=== PATIENT | female | born 1940 | race Caucasian/White ===

== ENCOUNTER 2017-05-03 12:19 | Day surgery (SDC) | payer OTHER, SELFPAY ==
[~2017-05-03] VITALS: Ht 167.6 cm; Wt 58.1 kg
[~2017-05-03 12:19] MED LIST: ALBU90OI6; AMLO5 PO; CLOP75; FAMO20; LISHYD1012; LISHYD2025 PO; PRAV20 PO
== END 2017-05-03 15:12 | disposition home or self-care (01) ==
LOC: ORSCSDS 12:19
PROVIDERS: Internal Medicine Gastroenterology
PROC: 0DB98ZX Excision of Duodenum, Via Natural or Artificial Opening Endoscopic, Diagnostic (ICD-10-PCS; principal; 2017-05-03 13:45)
PROC: 0DBN8ZX Excision of Sigmoid Colon, Via Natural or Artificial Opening Endoscopic, Diagnostic (ICD-10-PCS; principal; 2017-05-03 13:45)
PROC: 0DBP8ZX Excision of Rectum, Via Natural or Artificial Opening Endoscopic, Diagnostic (ICD-10-PCS; principal; 2017-05-03 13:45)
DX: K21.9 Gastro-esophageal reflux disease without esophagitis (principal); K31.7 Polyp of stomach and duodenum; Z86.010 Personal history of colon polyps; K57.30 Diverticulosis of large intestine without perforation or abscess without bleeding; D12.5 Benign neoplasm of sigmoid colon; K62.1 Rectal polyp; I10 Essential (primary) hypertension; Z86.73 Personal history of transient ischemic attack (TIA), and cerebral infarction without residual deficits; J44.9 Chronic obstructive pulmonary disease, unspecified; E78.2 Mixed hyperlipidemia; F17.210 Nicotine dependence, cigarettes, uncomplicated; Z79.899 Other long term (current) drug therapy
CPT/HCPCS: 88305; J7120

== ENCOUNTER 2018-04-22 22:01 | Inpatient (IN) | payer OTHER ==
[~2018-04-22] VITALS: Ht 165.1 cm; Wt 49.0 kg
[2018-04-22] MEDS ORDERED: BUPR75 PO (22:17)
[2018-04-23] MEDS ORDERED: MUCINEX PO (01:41)
[2018-04-23 02:28] LABS: BASOPHILS ABSOLUTE AUTO 0.03 K/mm3 (0.00-0.23); BASOPHILS PERCENT AUTO 0 % (0-2); EOSINOPHILS ABSOLUTE AUTO 0.04 K/mm3 (0.00-0.68); EOSINOPHILS PERCENT AUTO 0 % (0-6); Hematocrit 33.5 % (33.0-51.0); Hemoglobin 10.7 g/dL (11.5-16.0); IMMATURE GRAN ABSOLUTE AUTO 0.02 K/mm3 (0.00-0.10); IMMATURE GRAN PERCENT AUTO 0 % (0-1); LYMPHOCYTES ABSOLUTE AUTO 1.73 K/mm3 (0.84-5.20); LYMPHOCYTES PERCENT AUTO 19 % (21-46); MONOCYTES ABSOLUTE AUTO 0.77 K/mm3 (0.16-1.47); MONOCYTES PERCENT AUTO 8 % (4-13); Mean Corpuscular HGB 29.7 pg (26.0-34.0); Mean Corpuscular HGB Conc 31.9 g/dL (31.5-36.5); Mean Corpuscular Volume 93 fL (80-100); Mean Platelet Volume 9.6 fL (9.1-12.4); NEUTROPHILS ABSOLUTE AUTO 6.63 K/mm3 (1.96-9.15); NEUTROPHILS PERCENT AUTO 72 % (41-73); Platelet Count 180 K/mm3 (150-400); RDW Coefficient Variation 13.1 % (11.7-14.2); RDW Standard Deviation 44.8 fL (35.1-46.3); White Blood Cell Count 9.22 K/mm3 (4.00-11.30)
[2018-04-23 02:44] LABS: Anion Gap 9 mmol/L (6-16); Blood Urea Nitrogen 16 mg/dL (8-24); Bun/Creatinine Ratio 18.1 (12.0-20.0); CO2, Blood 26 mmol/L (21-32); Calcium, Blood 8.5 mg/dL (8.5-10.1); Chloride, Blood 109 mmol/L (98-108); Creatinine, Blood 0.89 mg/dL (0.40-1.00); Glomerular Filtration Rate >60 (60-); Glucose, Blood 105 mg/dL (70-99); Potassium, Blood 4.3 mmol/L (3.5-5.5); Sodium, Blood 144 mmol/L (136-145)
--- NOTE | 2018-04-23 07:39 | NUR ---
SUMMARY PT ADMITTED TO ORTHO UNIT S/P FALL AND L HIP FX. PT ALERT,COOPERATIVE. MEDICATED X1 WITH SUBLIMAZE FOR PAIN. WAITING TO BE SEEN BY ORTHO FOR FURTHER ORDERS AND POSSIBLE SCHEDULING OF REPAIR.
--- NOTE | 2018-04-23 08:05 | NUR ---
CONSULT: DR VOGEL NOTIFIED OF CONSULT FOR THIS PATIENT.
[2018-04-23 09:38] LABS: Source, Urine Catheter
[2018-04-23 09:57] LABS: Appearance, Urine Clear (Clear); Bilirubin, Urine Neg (Neg); Blood, Urine Neg (Neg); Color, Urine Yellow (P-Yellow); Glucose Qualitative, Urine Neg (Neg); Ketones, Urine Neg (Neg); Leukocyte Esterase, Urine Neg (Neg); Nitrite, Urine Neg (Neg); Protein, Urine Neg (Neg); Urobilinogen, Urine NORM (Normal)
[2018-04-23 14:47] LABS: International Normalized Ratio 0.96; Prothrombin Time Results 9.9 Sec (9.7-11.5)
--- NOTE | 2018-04-23 16:06 | NUR ---
SHIFT SUMMARY PT A&OX4, VSS, S/P L HIP FX FROM FALL. PAIN MANAGED W/ 25 MCGS FENT. MONICA PO, DENIES N&V. BEDREST. NIEVES PATENT & DRAINING YELLOW URINE, STAT LOCK IN PLACE, OFF FLOOR. 18G RUE. PLAN FOR SURGERY TOMORROW, NPO AT MIDNIGHT. WILL CTM & TX PER EMAR UNTIL REPORT GIVEN TO ONCOMING NOC RN.
--- NOTE | 2018-04-24 08:18 | NUR ---
SHIFT SUMMARY PT A&O X4 T/O SHIFT. S/P L HIP FX. PPPX4. PAIN MANGED PER EMAR. NAUSEA X1; TX PER EMAR. PT REPORTED SOME IMPROVEMENT. PT C/O ABD PAIN POINTING TO RUQ AND EPIGASTIC AREA. APPROX. 0200 PHYSICIAN ESPINOSA NOTIFIED PT REPORT OF ABD PAIN, RUQ, MID BACK PAIN, AND "HEART BURN". ORDERS ENTERED PER EMAR. DURING ASSESSMENT PT DENIED SOB AND PT STATED "YES" SHE HAS HAD THIS PAIN BEFORE. PT REPORTED IMPROVEMENT AFTER MALOX AND SLEPT. APPROX. 0600 DR. ESPINOSA NOTIFIED PT HR QUICKLY CHANGING FROM 80'S TO 120'S AND THEN BACK TO ONE-TEENS; PT DENIED SOB, AND CP; BP STABLE, MEDICATIONS REVIED, RECENT ECG REVIEWED. ORDER FOR TELEMETRY RECIEVED. TELEMETRY REPORTED AFIB WITH HR BETWEEN 130 AND 150; DR. ESPINOSA NOTIFIED AT 0625 OF TELEMETRY FINDINGS AND ORDER FOR ECG AND METOPROLOL 5MG IV OT RECIEVED; RN TO NOTIFY EFM PROVIDER OF PT STATUS 25 MIN AFTER METOPROLOL DOSE. PT DENIED HX OF AFIB, PT DENIED CP; AT THIS TIME SHE STS SHE HAD "FLUTTERING" EARLIER IN SHIFT AND WITH FURTHER QUESTIONING PT REPORTED HAVING SIMILAR SYPTOMS REPORTED EARLIER IN THE SHIFT IN THE PAST AND HER " HAS CALLED THE AMBULANCE AND THEY MADE IT STOP." PT CONTINUED TO DENY CP/P AND SOB THROUGH THE REST OF SHIFT. NPO POST MIDNIGHT. IV GTT PER EMAR. CATHETER IN PLACE; DRAINING WELL. CALL LIGHT IN REACH; PT DEMONSTRATES USE. REPORT GIVEN TO DAY SHIFT RN.
--- NOTE | 2018-04-24 17:15 | NUR ---
SHIFT SUMMARY PT A&OX4, VSS, S/P L HIP FX. PAIN MANAGED PER EMAR. MONICA PO, DENIES N&V. TELE SINUS RHYTHM @ 65, PT CONVERTED FROM AFIB AT 1238. BEDREST. NIEVES PATENT & DRAINING YELLOW URINE, STAT LOCK IN PLACE, OFF FLOOR. 18 IV RUE, IVF @ 100 MLS/HR. PLAN FOR SURGERY TOMORROW, NPO AT MIDNIGHT. WILL CTM & TX PER EMAR UNTIL REPORT GIVEN TO ONCOMING NOC RN.
[2018-04-25 05:46] LABS: BASOPHILS ABSOLUTE AUTO 0.03 K/mm3 (0.00-0.23); BASOPHILS PERCENT AUTO 0 % (0-2); EOSINOPHILS ABSOLUTE AUTO 0.19 K/mm3 (0.00-0.68); EOSINOPHILS PERCENT AUTO 3 % (0-6); Hematocrit 29.6 % (33.0-51.0); Hemoglobin 9.4 g/dL (11.5-16.0); IMMATURE GRAN ABSOLUTE AUTO 0.02 K/mm3 (0.00-0.10); IMMATURE GRAN PERCENT AUTO 0 % (0-1); LYMPHOCYTES ABSOLUTE AUTO 1.66 K/mm3 (0.84-5.20); LYMPHOCYTES PERCENT AUTO 23 % (21-46); MONOCYTES ABSOLUTE AUTO 0.79 K/mm3 (0.16-1.47); MONOCYTES PERCENT AUTO 11 % (4-13); Mean Corpuscular HGB 29.4 pg (26.0-34.0); Mean Corpuscular HGB Conc 31.8 g/dL (31.5-36.5); Mean Corpuscular Volume 93 fL (80-100); Mean Platelet Volume 9.8 fL (9.1-12.4); NEUTROPHILS ABSOLUTE AUTO 4.52 K/mm3 (1.96-9.15); NEUTROPHILS PERCENT AUTO 63 % (41-73); Platelet Count 147 K/mm3 (150-400); RDW Coefficient Variation 12.8 % (11.7-14.2); RDW Standard Deviation 43.4 fL (35.1-46.3); White Blood Cell Count 7.21 K/mm3 (4.00-11.30)
[2018-04-25 06:12] LABS: Anion Gap 5 mmol/L (6-16); Blood Urea Nitrogen 13 mg/dL (8-24); Bun/Creatinine Ratio 15.5 (12.0-20.0); CO2, Blood 26 mmol/L (21-32); Calcium, Blood 8.7 mg/dL (8.5-10.1); Chloride, Blood 109 mmol/L (98-108); Creatinine, Blood 0.84 mg/dL (0.40-1.00); Glomerular Filtration Rate >60 (60-); Glucose, Blood 92 mg/dL (70-99); Potassium, Blood 4.3 mmol/L (3.5-5.5); Sodium, Blood 140 mmol/L (136-145)
--- NOTE | 2018-04-25 07:55 | NUR ---
SHIFT SUMMARY PT A&O X4 T/O SHIFT. S/P L HIP FX; NWB LLE; PPPX4; EXT PWD. PAIN MANGED PER EMAR. PAIN MANGEMENT DISCUSSED WITH PT; PT ENCOURAGED TO NOTIFY RN OF PAIN PRIOR TO REACHING LEVEL OF NOTABLE DISCOMFORT. PT REPOSITIONED PRN; PT MAKES SMALL ADJUSTMENTS TO BODY POSITION INDEPENDENTLY. SIDE RAILS X3 FOR SAFETY. NPO POST MINIGHT; ORAL CARE SWABS IN REACH. SCD'S TO BLE'S. EZEQUIEL ALFARO; TELEMETRY IN PLACE; SB PER RAND BUTTING MACHINE OPERATOR. CALL LIGHT IN REACH. REPORT GIVEN TO DAY SHIFT RN.
--- NOTE | 2018-04-25 12:10 | NUR ---
History, Chart, Medications and Allergies reviewed before start of procedure.Lungs clear T/O to Auscultation. Patient confirms NPO status and agrees with scheduled surgery.
--- NOTE | 2018-04-25 17:45 | NUR ---
SHIFT SUMMARY PT A&OX4, VSS, TELE SR @ 81. S/P L HIP NAILING, AQUACEL X2 CDI, DENIES N&T, TEDS, SCDS AND POLAR BARRERA ON. PAIN MANAGED W/ 5 MG NORCO. MONICA PO, DENIES N&V. AMB FWW & GB WITH MOD ASSIST TO BSC & CHAIR. IN CHAIR FOR DINNER. PHYSICAL THERAPY EVAL'D. GI CONSULT NOT CALLED D/T NO ONE MISSILEMAN TODAY; HOSPITALIST AWARE. NIEVES PATENT & DRAINING YELLOW URINE, STAT LOCK ON, OFF FLOOR. WILL CTM & TX PRN UNTIL REPORT GIVEN TO ONCOMING NOC RN.
[2018-04-26 04:36] LABS: BASOPHILS ABSOLUTE AUTO 0.04 K/mm3 (0.00-0.23); BASOPHILS PERCENT AUTO 1 % (0-2); EOSINOPHILS ABSOLUTE AUTO 0.15 K/mm3 (0.00-0.68); EOSINOPHILS PERCENT AUTO 3 % (0-6); Hematocrit 27.1 % (33.0-51.0); Hemoglobin 8.7 g/dL (11.5-16.0); IMMATURE GRAN ABSOLUTE AUTO 0.01 K/mm3 (0.00-0.10); IMMATURE GRAN PERCENT AUTO 0 % (0-1); LYMPHOCYTES PERCENT AUTO 23 % (21-46); MONOCYTES ABSOLUTE AUTO 0.68 K/mm3 (0.16-1.47); MONOCYTES PERCENT AUTO 11 % (4-13); Mean Corpuscular HGB 29.5 pg (26.0-34.0); Mean Corpuscular HGB Conc 32.1 g/dL (31.5-36.5); Mean Corpuscular Volume 92 fL (80-100); Mean Platelet Volume 10.3 fL (9.1-12.4); NEUTROPHILS ABSOLUTE AUTO 3.78 K/mm3 (1.96-9.15); NEUTROPHILS PERCENT AUTO 62 % (41-73); Platelet Count 154 K/mm3 (150-400); RDW Coefficient Variation 12.6 % (11.7-14.2); RDW Standard Deviation 42.5 fL (35.1-46.3); Red Blood Cell Count 2.95 M/mm3 (3.80-5.20); White Blood Cell Count 6.06 K/mm3 (4.00-11.30)
[2018-04-26 04:55] LABS: Anion Gap 6 mmol/L (6-16); Blood Urea Nitrogen 17 mg/dL (8-24); Bun/Creatinine Ratio 19.5 (12.0-20.0); CO2, Blood 27 mmol/L (21-32); Calcium, Blood 8.6 mg/dL (8.5-10.1); Chloride, Blood 106 mmol/L (98-108); Creatinine, Blood 0.87 mg/dL (0.40-1.00); Glomerular Filtration Rate >60 (60-); Glucose, Blood 92 mg/dL (70-99); Potassium, Blood 4.2 mmol/L (3.5-5.5); Sodium, Blood 139 mmol/L (136-145)
--- NOTE | 2018-04-26 06:41 | NUR ---
LYING IN HIGH FOWLERS WITH EYES OPENWHILE WATCHING TV AND DRINKING HER MORNING COFFEE. NURSING REITERATED NEED TO CALL WITH NEEDS, VOICES UNDERSTANDING, DENIES FURTHER NEEDS AT THIS TIME. SAFETY MEASURES IN PLACE. WILL CONTINUE TO MONITOR.
--- NOTE | 2018-04-26 17:11 | NUR ---
SHIFT SUMMARY PAIN HAS BEEN MANAGED WITH PO PAIN MEDICATION THIS SHIFT. PT HAS BEEN RESISTANT TO GETTING OOB WITH MEALS. SHE IS A 1-2 ASSIST WHEN OOB. PT DECLINES ASSISTANCE REPOSITIONING IN BED. PT WAS EDUCATED ABOUT THE RISK OF A PRESSURE INJURY WITH DECREASED ACTIVITY. PLAN IS TO GO TO SNF WHEN PT IS STABLE. VSS. WILL CONTINUE TO MONITOR UNTIL REPORT TO ONCOMING RN.
[2018-04-27 05:19] LABS: BASOPHILS ABSOLUTE AUTO 0.04 K/mm3 (0.00-0.23); BASOPHILS PERCENT AUTO 1 % (0-2); EOSINOPHILS PERCENT AUTO 2 % (0-6); Hematocrit 25.9 % (33.0-51.0); Hemoglobin 8.4 g/dL (11.5-16.0); IMMATURE GRAN ABSOLUTE AUTO 0.01 K/mm3 (0.00-0.10); IMMATURE GRAN PERCENT AUTO 0 % (0-1); LYMPHOCYTES PERCENT AUTO 19 % (21-46); MONOCYTES PERCENT AUTO 11 % (4-13); Mean Corpuscular HGB 29.7 pg (26.0-34.0); Mean Corpuscular HGB Conc 32.4 g/dL (31.5-36.5); Mean Corpuscular Volume 92 fL (80-100); Mean Platelet Volume 10.5 fL (9.1-12.4); NEUTROPHILS ABSOLUTE AUTO 4.17 K/mm3 (1.96-9.15); NEUTROPHILS PERCENT AUTO 67 % (41-73); Platelet Count 159 K/mm3 (150-400); RDW Coefficient Variation 12.7 % (11.7-14.2); Red Blood Cell Count 2.83 M/mm3 (3.80-5.20); White Blood Cell Count 6.22 K/mm3 (4.00-11.30)
[2018-04-27 05:45] LABS: Albumin, Blood 2.8 g/dL (3.4-5.0); Anion Gap 7 mmol/L (6-16); Blood Urea Nitrogen 15 mg/dL (8-24); Bun/Creatinine Ratio 17.9 (12.0-20.0); CO2, Blood 25 mmol/L (21-32); Chloride, Blood 106 mmol/L (98-108); Creatinine, Blood 0.84 mg/dL (0.40-1.00); Glomerular Filtration Rate >60 (60-); Glucose, Blood 103 mg/dL (70-99); Phosphorus, Blood 3.2 mg/dL (2.5-4.9); Sodium, Blood 138 mmol/L (136-145)
--- NOTE | 2018-04-27 06:19 | NUR ---
POD 2 S/P R SIMONE HIP REPAIR. PT VSS T/O NIGHT. DRESSING CDI. MILD SWELLING NOTED AT R HIP. PT MED FOR PAIN X1 W/REP RELIEF. PT DECLINED ADDITIONAL OFFERINGS OF PAIN MED. PT REFUSING MOST ATTEMPTS OF REPOSITIONING. PT IS DOING ROM EXERCISES WHILE IN BED, DOES SHIFT SELF SLIGHTLY. NIEVES CATH D/C THIS AM. PT EDUCATED ON IMPORTANCE OF AMB UP OOB. PT USING CALL LIGHT FOR ASSISTANCE, WILL CONT TO MONITOR UNTIL REP GIVEN TO ONCOMING RN.
--- NOTE | 2018-04-27 11:53 | NUR ---
DR. RODRIGUEZ ROUNDED ON PT AT THIS TIME. DISCUSSED RESTARTING PLAVIX, BOWEL CARE AND ORTHOSTATIC HYPOTENSION WHEN WORKING WITH THERAPY. WILL CONTINUE TO MONITOR.
--- NOTE | 2018-04-27 11:56 | NUR ---
ORTHOSTATIC HYPOTENSION PT BECAME HYPOTENSIVE AT APPROXIMATELY 1050 WHEN WORKING WITH THERAPY. PB WAS 80S/40S. BP IMPROVED ONCE PT WAS BACK TO BED. DR. RODRIGUEZ NOTIFIED.
--- NOTE | 2018-04-27 15:22 | NUR ---
REPOSITIONING PT HAS REPORTED THAT SHE IS ABLE TO SHIFT POSITIONS IN BED. SHE HAS DECLINED ASSISTANCE WITH REPOSITIONING FOR MOST OF THE DAY. SHE ALLOWED STAFF TO TURN HER IN ORDER TO ASSESS SKIN AND PLACE PRESSURE PREVENTION DRESSING TO COCCYX THIS AFTERNOON. SHE IS PAINFUL WITH REPOSITIONING AND DOESNT TOLERATE WELL EVEN WHEN PREMEDICATED. PT WAS EDUCATED THAT SHE IS DEVELOPING A REDDENED AREA ON HER COCCYX THAT COULD WORSEN TO A PRESSURE SORE IF SHE CONTINUES TO BE UNWILLING TO REPOSITIONG; REDDENED AREA BLANCHES. PREVENTION DRESSING PLACED. WILL CONTINUE TO MONITOR AND ENCOURAGE REPOSITIONING.
--- NOTE | 2018-04-27 15:58 | NUR ---
BLADDER SCAN PT ATTEMPTED TO USE THE BEDPAN. SHE WAS UNABLE TO VOID. BLADDER SCAN SHOWED 321ML IN THE BLADDER. PT REPORTED SHE WOULD LIKE TO TRY AGAIN LATER. PT WAS ABLE TO VOID 200ML EARLIER TODAY. WILL CONTINUE TO MONITOR.
--- NOTE | 2018-04-27 16:07 | NUR ---
Initial Visit: Palliative care consult for AD/POLST and advance care planning. Pt resting in bed and is A&O x4. She reports 8/10 pain in her left hip and states the pain is due to being on the bed mo. Offered assistance and she denies need. She reports not being ready to get off bed mo. Pt reports pain medication decreases her pain to a tolerable level. Pt reports that she has no religous belief and she lives at home with her . Pt reports adequate support with her and her sisters are also willing to help when needed. Discussion was made about AD and POLST and Pt states she is willing to consider one or both. Offered to help with forms and she denies need. She states she will complete at a later time. Pt reports no other concerns at this time. Spoke with Pt's nurse Esther and she report no concerns at this time. She reports the Pt will experience intermittent pain when working with physical therapy and has started pre medicating her before therapy. Plan is to obtain POLST or Advance Directive once completed.
--- NOTE | 2018-04-27 18:37 | NUR ---
SHIFT SUMMARY PAIN HAS BEEN MANAGED WITH PO PAIN MEDICATION. SHE STILL COMPLAINS OF PAIN WITH ALL ACTIVITY. SHE IS RELUCTANT TO REPOSITION AND DECLINES OFTEN. SHE IS ABLE TO REPOSITION HERSELF SLIGHTLY. PT WAS A 2 ASSIST WHEN OOB WITH THERAPY. HER BP DECREASED WHEN OOB WITH AM THERAPY, AND PT HAD TO GET BACK TO BED. PT HAS BEEN ENCOURAGED TO DRINK FLUIDS. VSS. WILL CONTINUE TO MONITOR UNTIL REPORT TO ONCOMING RN.
--- NOTE | 2018-04-28 10:10 | NUR ---
PT UP TO BSC WITH ASSIST FROM FEMALE FINANCIAL AID. PT REPORTS WILL HAVE SUPPOSITORY TO ASSIST WITH BM, GIVEN WITH FEMALE FINANCIAL AID IN ROOM.
--- NOTE | 2018-04-28 11:34 | NUR ---
PT REPORTED TO HAVE BM PER FEMALE RESIDENT ATHLETIC TRAINER. PT NOW WORKING WITH THERAPY.
--- NOTE | 2018-04-28 13:27 | NUR ---
DR CLEARY HERE TO SEE PT. SEE ORDERS.
--- NOTE | 2018-04-28 14:39 | NUR ---
DISCHARGE: PT DISCHARGED TO U.V. IV OUT WNL. PT SENT WITH BELONGINGS. PAPERWORK AND SCRIPT SENT WITH PT. DRESSINGS SENT WITH PT. REPORT BEEN GIVEN TO NURSE HOLLAND. PT EATING AND DRINKING, VOIDING. HAD BM TODAY. PAIN TOLERABLE ON PO PAIN MEDICATION.
== END 2018-04-28 14:40 | DRG 481 ==
LOC: ER 22:01 → SURS 04-23 00:17
PROVIDERS: Emergency Medicine; Internal Medicine Endocrinology, Diabetes & Metabolism; Orthopaedic Surgery; ADMIT Hospitalist
PROC: 0QS706Z Reposition Left Upper Femur with Intramedullary Internal Fixation Device, Open Approach (ICD-10-PCS; principal; 2018-04-25 13:00)
DX: S72.142A Displaced intertrochanteric fracture of left femur, initial encounter for closed fracture (principal); I69.354 Hemiplegia and hemiparesis following cerebral infarction affecting left non-dominant side; D62 Acute posthemorrhagic anemia; F17.210 Nicotine dependence, cigarettes, uncomplicated; J44.9 Chronic obstructive pulmonary disease, unspecified; F32.9 Major depressive disorder, single episode, unspecified; E78.00 Pure hypercholesterolemia, unspecified; I10 Essential (primary) hypertension; E78.5 Hyperlipidemia, unspecified
CPT/HCPCS: 36415; 71045; 72170; 73501; 80048; 80069; 81003; 85025; 85610; 93005; 93010; 93306; 94640; 94760; 96374; 97110; 97116; 97162; 97166; 97530; 99285-25; C1713; C1769; G8978; G8979; G8987; G8988; J0690; J1170; J1885; J2250; J2405; J3010; J7030; J7120

== ENCOUNTER → 2019-06-10 | Outpatient (CLI) | payer OTHER ==
[~2019-06-10] MED LIST changes: +BUPR75 PO; +MUCINEX PO
[2019-06-10 17:04] LABS: BASOPHILS ABSOLUTE AUTO 0.02 K/mm3 (0.00-0.23); BASOPHILS PERCENT AUTO 1 % (0-2); EOSINOPHILS ABSOLUTE AUTO 0.06 K/mm3 (0.00-0.68); EOSINOPHILS PERCENT AUTO 1 % (0-6); Hematocrit 36.2 % (33.0-51.0); Hemoglobin 11.8 g/dL (11.5-16.0); IMMATURE GRAN ABSOLUTE AUTO 0.01 K/mm3 (0.00-0.10); IMMATURE GRAN PERCENT AUTO 0 % (0-1); LYMPHOCYTES PERCENT AUTO 39 % (21-46); MONOCYTES ABSOLUTE AUTO 0.49 K/mm3 (0.16-1.47); MONOCYTES PERCENT AUTO 11 % (4-13); Mean Corpuscular HGB 29.4 pg (26.0-34.0); Mean Corpuscular HGB Conc 32.6 g/dL (31.5-36.5); Mean Corpuscular Volume 90 fL (80-100); Mean Platelet Volume 9.8 fL (9.1-12.4); NEUTROPHILS ABSOLUTE AUTO 2.11 K/mm3 (1.96-9.15); NEUTROPHILS PERCENT AUTO 48 % (41-73); Platelet Count 215 K/mm3 (150-400); RDW Coefficient Variation 12.9 % (11.7-14.2); RDW Standard Deviation 42.5 fL (35.1-46.3); Red Blood Cell Count 4.02 M/mm3 (3.80-5.20); White Blood Cell Count 4.39 K/mm3 (4.00-11.30)
[2019-06-10 17:16] LABS: Bun/Creatinine Ratio 15.4 (12.0-20.0); Creatinine, Blood 1.3 mg/dL (0.40-1.00); Potassium, Blood 3.8 mmol/L (3.5-5.5)
== END | disposition home or self-care (01) ==
LOC: LAB EV 16:59 → LAB SHORT 16:59
PROVIDERS: Physician Assistant Surgical
DX: R06.09 Other forms of dyspnea (principal)
CPT/HCPCS: 80048; 83880; 85025

== ENCOUNTER 2022-02-17 07:55 | Emergency (ER) | payer OTHER ==
[~2022-02-17] VITALS: Ht 167.6 cm; Wt 54.4 kg
[~2022-02-17 07:55] MED LIST changes: +ELIQUIS5 M2 PO; +Veetids 500500 MG PO
[2022-02-17 08:13] LABS: BASOPHILS ABSOLUTE AUTO 0.09 K/mm3 (0.00-0.23); BASOPHILS PERCENT AUTO 1 % (0-2); EOSINOPHILS PERCENT AUTO 2 % (0-6); Hematocrit 31.9 % (33.0-51.0); Hemoglobin 10.6 g/dL (11.5-16.0); IMMATURE GRAN ABSOLUTE AUTO 0.02 K/mm3 (0.00-0.10); IMMATURE GRAN PERCENT AUTO 0 % (0-1); LYMPHOCYTES ABSOLUTE AUTO 2.54 K/mm3 (0.84-5.20); LYMPHOCYTES PERCENT AUTO 39 % (21-46); MONOCYTES ABSOLUTE AUTO 0.61 K/mm3 (0.16-1.47); MONOCYTES PERCENT AUTO 9 % (4-13); Mean Corpuscular HGB 31.1 pg (26.0-34.0); Mean Corpuscular HGB Conc 33.2 g/dL (31.5-36.5); Mean Corpuscular Volume 94 fL (80-100); Mean Platelet Volume 9.2 fL (9.1-12.4); NEUTROPHILS ABSOLUTE AUTO 3.16 K/mm3 (1.96-9.15); NEUTROPHILS PERCENT AUTO 48 % (41-73); Platelet Count 185 K/mm3 (150-400); RDW Coefficient Variation 12.6 % (11.7-14.2); RDW Standard Deviation 43.7 fL (35.1-46.3); Red Blood Cell Count 3.41 M/mm3 (3.80-5.20); White Blood Cell Count 6.52 K/mm3 (4.00-11.30)
[2022-02-17 08:36] LABS: Albumin, Blood 2.7 g/dL (3.4-5.0); Albumin/Globulin Ratio 1.2 (0.8-1.8); Bilirubin, Total 0.3 mg/dL (0.1-1.0); Bun/Creatinine Ratio 12.2 (12.0-20.0); Calcium, Blood 6.8 mg/dL (8.5-10.1); Creatinine, Blood 0.57 mg/dL (0.40-1.00); Globulin, Blood 2.2 g/dL (2.2-4.0); Magnesium, Blood 1.8 mg/dL (1.6-2.4); Potassium, Blood 3.5 mmol/L (3.5-5.5); Total Protein, Blood 4.9 g/dL (6.4-8.2)
[2022-02-17 12:35] LABS: Source, Urine Straight Cath
[2022-02-17 12:39] LABS: Appearance, Urine Clear (Clear); Bilirubin, Urine Neg (Neg); Blood, Urine Neg (Neg); Color, Urine Yellow (P-Yellow); Glucose Qualitative, Urine Neg (Neg); Ketones, Urine 1+ (Neg); Leukocyte Esterase, Urine Neg (Neg); Nitrite, Urine Neg (Neg); Protein, Urine Neg (Neg); Urobilinogen, Urine NORM (Normal); pH, Urine 6.5 (5.0-8.0)
== END 2022-02-17 13:41 | disposition home or self-care (01) ==
LOC: ER 07:55
PROVIDERS: Student in an Organized Health Care Education/Training Program
DX: I95.9 Hypotension, unspecified (principal); I10 Essential (primary) hypertension; E83.51 Hypocalcemia; E78.5 Hyperlipidemia, unspecified; J44.9 Chronic obstructive pulmonary disease, unspecified; F17.210 Nicotine dependence, cigarettes, uncomplicated; Z88.8 Allergy status to other drugs, medicaments and biological substances; Z79.899 Other long term (current) drug therapy; Z86.73 Personal history of transient ischemic attack (TIA), and cerebral infarction without residual deficits; Z79.01 Long term (current) use of anticoagulants
CPT/HCPCS: 36415; 51798; 70450; 71046; 80053; 81003; 82947; 83735; 84145; 85025; 93005; 93010; 96365; 96375; 99285-25; A9270; J0610; J1790; J1885; J2765; J7030

== ENCOUNTER 2024-08-13 11:42 | Emergency (ER) | payer OTHER ==
[~2024-08-13] VITALS: Ht 167.6 cm; Wt 58.1 kg
[~2024-08-13 11:42] MED LIST changes: +ATOR20 PO; +Acetaminophen325 M1; +LOSARTAN POTAS100 M1 PO; +OMEP20ER PO; +Plavix75 MG PO; +SERT50 PO; +Toprol Xl25 MG PO
[2024-08-13 12:34] LABS: BASOPHILS ABSOLUTE AUTO 0.05 K/mm3 (0.00-0.23); BASOPHILS PERCENT AUTO 1 % (0-2); EOSINOPHILS ABSOLUTE AUTO 0.09 K/mm3 (0.00-0.68); EOSINOPHILS PERCENT AUTO 1 % (0-6); Hematocrit 32.9 % (33.0-51.0); Hemoglobin 10.7 g/dL (11.5-16.0); IMMATURE GRAN ABSOLUTE AUTO 0.01 K/mm3 (0.00-0.10); IMMATURE GRAN PERCENT AUTO 0 % (0-1); LYMPHOCYTES ABSOLUTE AUTO 1.69 K/mm3 (0.84-5.20); LYMPHOCYTES PERCENT AUTO 26 % (21-46); MONOCYTES ABSOLUTE AUTO 0.56 K/mm3 (0.16-1.47); MONOCYTES PERCENT AUTO 9 % (4-13); Mean Corpuscular HGB 30.1 pg (26.0-34.0); Mean Corpuscular HGB Conc 32.5 g/dL (31.5-36.5); Mean Corpuscular Volume 92 fL (80-100); Mean Platelet Volume 9.6 fL (9.1-12.4); NEUTROPHILS ABSOLUTE AUTO 4.17 K/mm3 (1.96-9.15); NEUTROPHILS PERCENT AUTO 63 % (41-73); Platelet Count 239 K/mm3 (150-400); RDW Coefficient Variation 13.1 % (11.7-14.2); RDW Standard Deviation 44.9 fL (35.1-46.3); Red Blood Cell Count 3.56 M/mm3 (3.80-5.20); White Blood Cell Count 6.57 K/mm3 (4.00-11.30)
[2024-08-13] MEDS ORDERED: NS 1,000 ML IV SCH (12:40)
[2024-08-13 12:57] LABS: Albumin, Blood 3.5 g/dL (3.4-5.0); Albumin/Globulin Ratio 1.1 (0.8-1.8); Bilirubin, Total 0.4 mg/dL (0.1-1.0); Bun/Creatinine Ratio 13.7 (12.0-20.0); Calcium, Blood 8.6 mg/dL (8.5-10.1); Creatinine, Blood 0.88 mg/dL (0.40-1.00); Globulin, Blood 3.1 g/dL (2.2-4.0); Magnesium, Blood 2.1 mg/dL (1.6-2.4); Potassium, Blood 3.7 mmol/L (3.5-5.5); Total Protein, Blood 6.6 g/dL (6.4-8.2)
[2024-08-13 16:34] VITALS: BP 110/67
== END 2024-08-13 16:34 | disposition home or self-care (01) ==
LOC: ER 11:42
PROVIDERS: Student in an Organized Health Care Education/Training Program
DX: R55 Syncope and collapse (principal); E86.0 Dehydration; I10 Essential (primary) hypertension; J44.9 Chronic obstructive pulmonary disease, unspecified; I48.91 Unspecified atrial fibrillation; I69.354 Hemiplegia and hemiparesis following cerebral infarction affecting left non-dominant side; E78.5 Hyperlipidemia, unspecified; F17.210 Nicotine dependence, cigarettes, uncomplicated; Z88.8 Allergy status to other drugs, medicaments and biological substances; Z79.01 Long term (current) use of anticoagulants; Z79.899 Other long term (current) drug therapy
CPT/HCPCS: 71046; 80053; 83735; 84484; 85025; 93005; 93010; 99285-25; J7030

== ENCOUNTER 2024-12-10 21:41 | Emergency (ER) | payer OTHER ==
[~2024-12-10] VITALS: Ht 167.6 cm; Wt 55.3 kg
[~2024-12-10 21:41] MED LIST changes: -Acetaminophen325 M1; +Acetaminophen325 M1 PO
[2024-12-10] MEDS ORDERED: Metoprolol Tartrate 1 MG/ML 5 ML VIAL IV PRN (21:55)
[2024-12-10 22:04] LABS: BASOPHILS ABSOLUTE AUTO 0.05 K/mm3 (0.00-0.23); BASOPHILS PERCENT AUTO 1 % (0-2); EOSINOPHILS ABSOLUTE AUTO 0.10 K/mm3 (0.00-0.68); EOSINOPHILS PERCENT AUTO 2 % (0-6); Hematocrit 32.6 % (33.0-51.0); Hemoglobin 10.7 g/dL (11.5-16.0); IMMATURE GRAN ABSOLUTE AUTO 0.01 K/mm3 (0.00-0.10); IMMATURE GRAN PERCENT AUTO 0 % (0-1); LYMPHOCYTES ABSOLUTE AUTO 2.98 K/mm3 (0.84-5.20); LYMPHOCYTES PERCENT AUTO 45 % (21-46); MONOCYTES ABSOLUTE AUTO 0.60 K/mm3 (0.16-1.47); MONOCYTES PERCENT AUTO 9 % (4-13); Mean Corpuscular HGB Conc 32.8 g/dL (31.5-36.5); Mean Corpuscular Volume 93 fL (80-100); NEUTROPHILS ABSOLUTE AUTO 2.94 K/mm3 (1.96-9.15); NEUTROPHILS PERCENT AUTO 44 % (41-73); NRBC ABSOLUTE 0.00 K/mm3 (0.00-0.02); NRBC Auto 0.0 /100 WBC (0.0-0.2); Platelet Count 226 K/mm3 (150-400); RDW Coefficient Variation 14.0 % (11.7-14.2); RDW Standard Deviation 47.5 fL (35.1-46.3)
[2024-12-10 22:15] LABS: Alanine Aminotransfer (ALT/SGP 13.0 U/L (12-78); Albumin, Blood 3.3 g/dL (3.4-5.0); Albumin/Globulin Ratio 1.0 (0.8-1.8); Anion Gap 8.0 mmol/L (3-11); Aspartate Aminotrans (AST/SGOT 23.0 U/L (12-37); Bilirubin, Total 0.4 mg/dL (0.1-1.0); Blood Urea Nitrogen 7.0 mg/dL (8-24); CO2, Blood 24.0 mmol/L (21-32); Calcium, Blood 9.4 mg/dL (8.5-10.1); Chloride, Blood 104.0 mmol/L (98-108); Creatinine, Blood 0.67 mg/dL (0.40-1.00); Globulin, Blood 3.2 g/dL (2.2-4.0); Glucose, Blood 91.0 mg/dL (70-99); Potassium, Blood 3.4 mmol/L (3.5-5.5); Sodium, Blood 133.0 mmol/L (136-145); Total Protein, Blood 6.5 g/dL (6.4-8.2)
[2024-12-10] MEDS ORDERED: METOPROLOL SUCC25 MG PO ×2 (22:22→23:19)
[2024-12-10 23:00] VITALS: BP 148/95
== END 2024-12-10 23:29 | disposition home or self-care (01) ==
LOC: ER 21:41
PROVIDERS: Student in an Organized Health Care Education/Training Program
DX: I48.91 Unspecified atrial fibrillation (principal); I10 Essential (primary) hypertension; E78.5 Hyperlipidemia, unspecified; J44.9 Chronic obstructive pulmonary disease, unspecified; F17.210 Nicotine dependence, cigarettes, uncomplicated; Z88.8 Allergy status to other drugs, medicaments and biological substances; Z79.2 Long term (current) use of antibiotics; Z79.899 Other long term (current) drug therapy
CPT/HCPCS: 80053; 83880; 84484; 85025; 93005; 93010; 96374; 99285-25; A9270

== ENCOUNTER 2024-12-27 01:03 | Observation (INO) | payer OTHER ==
[~2024-12-27] VITALS: Ht 167.6 cm; Wt 48.0 kg
[~2024-12-27 01:03] MED LIST changes: +METOPROLOL SUCC25 MG PO
[2024-12-27] MEDS ORDERED: Ketorolac Tromethamine 15mg Vial IV ONE (01:20)
[2024-12-27] MEDS ORDERED: Lidocaine 4% 1 Patch TOP ONE ×2 (01:20→02:40)
[2024-12-27 01:38] LABS: BASOPHILS ABSOLUTE AUTO 0.04 K/mm3 (0.00-0.23); BASOPHILS PERCENT AUTO 1 % (0-2); EOSINOPHILS ABSOLUTE AUTO 0.08 K/mm3 (0.00-0.68); EOSINOPHILS PERCENT AUTO 1 % (0-6); Hematocrit 32.5 % (33.0-51.0); Hemoglobin 10.7 g/dL (11.5-16.0); IMMATURE GRAN ABSOLUTE AUTO 0.02 K/mm3 (0.00-0.10); IMMATURE GRAN PERCENT AUTO 0 % (0-1); LYMPHOCYTES ABSOLUTE AUTO 1.84 K/mm3 (0.84-5.20); LYMPHOCYTES PERCENT AUTO 33 % (21-46); MONOCYTES ABSOLUTE AUTO 0.60 K/mm3 (0.16-1.47); MONOCYTES PERCENT AUTO 11 % (4-13); Mean Corpuscular HGB Conc 32.9 g/dL (31.5-36.5); Mean Corpuscular Volume 93 fL (80-100); NEUTROPHILS ABSOLUTE AUTO 2.99 K/mm3 (1.96-9.15); NEUTROPHILS PERCENT AUTO 54 % (41-73); NRBC ABSOLUTE 0.00 K/mm3 (0.00-0.02); NRBC Auto 0.0 /100 WBC (0.0-0.2); Platelet Count 230 K/mm3 (150-400); RDW Coefficient Variation 14.3 % (11.7-14.2); RDW Standard Deviation 49.1 fL (35.1-46.3)
[2024-12-27 01:55] LABS: Alanine Aminotransfer (ALT/SGP 10.0 U/L (12-78); Albumin, Blood 3.1 g/dL (3.4-5.0); Albumin/Globulin Ratio 1.1 (0.8-1.8); Anion Gap 10.0 mmol/L (3-11); Aspartate Aminotrans (AST/SGOT 41.0 U/L (12-37); Bilirubin, Total 0.4 mg/dL (0.1-1.0); Blood Urea Nitrogen 7.0 mg/dL (8-24); CO2, Blood 20.0 mmol/L (21-32); Calcium, Blood 9.0 mg/dL (8.5-10.1); Chloride, Blood 108.0 mmol/L (98-108); Creatinine, Blood 0.62 mg/dL (0.40-1.00); Globulin, Blood 2.8 g/dL (2.2-4.0); Glucose, Blood 78.0 mg/dL (70-99); Potassium, Blood 4.1 mmol/L (3.5-5.5); Sodium, Blood 134.0 mmol/L (136-145); Total Protein, Blood 5.9 g/dL (6.4-8.2)
[2024-12-27 10:58] VITALS: BP 138/85
--- NOTE | 2024-12-27 11:09 | NUR ---
PATIENT ARRIVED IN ROOM 328 @1058. PATIENT ORIENTATED TO CALL SYSTEM AND BELONGINGS PUT INTO PERSONAL BELONGINGS BAGS. IV FLUSHED c 10ML NS, PATENT. FAMILY IN ROOM AT THIS TIME, AWAITING TELE. VITALS ARE WNL.
[2024-12-27] MEDS ORDERED: Calcium Carbon500 MG PO (11:29)
--- NOTE | 2024-12-27 14:31 | NUR ---
TELE STRIP REVIEWED THIS NURSE REVIEWED THE TELE STRIP FOR THIS PATIENT. THIS NURSE AGREES WITH THE TREE DEADENER'S INTERPRETATION, HOWEVER THIS NURSE NOTED SOME ST DEPRESSION. THIS NURSE WILL DISCUSS WITH YOLANDE Almanzar
[2024-12-27 15:43] VITALS: BP 178/77
--- NOTE | 2024-12-27 18:47 | NUR ---
SHIFT SUMMARY: PATIENT IS A+O X4 AND COOPERATIVE WITH CARE. PATIENT REMAINS UNDER OBS AT THIS TIME. LUNGS CLEAR AND DIMINISHED, S1 S2 HEARD ON ASCULATION, ROOM AIR CURRENTLY, C-PAP ORDER IN PLACE. PATIENT NOTED TO HAVE ECCHYMOTIC SKIN WITH REDDENED AREAS ON COXY AND HEALS. MEPILEX PLACED FOR PREVENTION. PATIENT REMAINS SBA TO BATHROOM. CARDIOLOGY CONSULTED IN ER. VICE PRESIDENT QUALITY ASSURANCE NOTIFIED THIS NURSE OF ST DEPRESSION NOTED IN EKG. ONCOMING NURSE NOTIFIED OF FINDINGS. PATIENT PULLED OUT IV AND WAS EDUCATED ON IMPORTANCE OF KEEPING ONE IN. PATIENT ACKNOWLEDGED IMPORTANCE.
[2024-12-27 19:31] VITALS: BP 114/56
[2024-12-28] VITALS (8 sets, daily range): BP systolic 99–146; BP diastolic 70–86
[2024-12-28] MEDS ORDERED: Metoprolol Tartrate 1 MG/ML 5 ML VIAL IV ONE (01:00)
[2024-12-28 01:30] LABS: Anion Gap 9.0 mmol/L (3-11); Blood Urea Nitrogen 7.0 mg/dL (8-24); CO2, Blood 23.0 mmol/L (21-32); Calcium, Blood 8.7 mg/dL (8.5-10.1); Chloride, Blood 106.0 mmol/L (98-108); Creatinine, Blood 0.64 mg/dL (0.40-1.00); Glucose, Blood 68.0 mg/dL (70-99); Magnesium, Blood 1.9 mg/dL (1.6-2.4); Phosphorus, Blood 2.9 mg/dL (2.5-4.9); Potassium, Blood 3.3 mmol/L (3.5-5.5); Sodium, Blood 135.0 mmol/L (136-145)
--- NOTE | 2024-12-28 04:54 | NUR ---
PATIENT ALERT AND ORIENTED X 3-4 DURING SHIFT. PATIENT IS ON ROOM AIR SATING >92%. PATIENT ON TELE. DURING SHIFT PATIENTS HR WENT UP TO 140'S AND THEN WENT INTO AFIB. MD WAS NOTIFIED AND 5 MG IV LOPRESSOR WAS ORDERED AND GIVEN. HR THEN DROPPED DOWN TO THE 90'S. PATIENT IS UP TO BATHROOM WITH 1 ASSIST. PATIENT HAS L SIDED WEAKNESS FROM PRIOR CVA. TYLENOL GIVEN FOR PAIN. PATIENT DID NOT COMPLAIN OF CHEST PAIN OR SOB. PATIENT ABLE TO MAKE NEEDS KNOWN. BED IN LOW POSITION WITH WHEELS LOCKED. BED ALARM ON. CALL LIGHT WITHING REACH
[2024-12-28 05:55] LABS: BASOPHILS ABSOLUTE AUTO 0.05 K/mm3 (0.00-0.23); BASOPHILS PERCENT AUTO 1 % (0-2); EOSINOPHILS ABSOLUTE AUTO 0.03 K/mm3 (0.00-0.68); EOSINOPHILS PERCENT AUTO 1 % (0-6); Hematocrit 32.8 % (33.0-51.0); Hemoglobin 10.8 g/dL (11.5-16.0); IMMATURE GRAN ABSOLUTE AUTO 0.01 K/mm3 (0.00-0.10); IMMATURE GRAN PERCENT AUTO 0 % (0-1); LYMPHOCYTES ABSOLUTE AUTO 1.63 K/mm3 (0.84-5.20); LYMPHOCYTES PERCENT AUTO 34 % (21-46); MONOCYTES ABSOLUTE AUTO 0.71 K/mm3 (0.16-1.47); MONOCYTES PERCENT AUTO 15 % (4-13); Mean Corpuscular HGB Conc 32.9 g/dL (31.5-36.5); Mean Corpuscular Volume 92 fL (80-100); NEUTROPHILS ABSOLUTE AUTO 2.41 K/mm3 (1.96-9.15); NEUTROPHILS PERCENT AUTO 50 % (41-73); NRBC ABSOLUTE 0.00 K/mm3 (0.00-0.02); NRBC Auto 0.0 /100 WBC (0.0-0.2); Platelet Count 213 K/mm3 (150-400); RDW Coefficient Variation 14.4 % (11.7-14.2); RDW Standard Deviation 49.3 fL (35.1-46.3)
[2024-12-28 06:18] LABS: Anion Gap 10.0 mmol/L (3-11); Blood Urea Nitrogen 7.0 mg/dL (8-24); CO2, Blood 23.0 mmol/L (21-32); Calcium, Blood 9.0 mg/dL (8.5-10.1); Chloride, Blood 106.0 mmol/L (98-108); Creatinine, Blood 0.65 mg/dL (0.40-1.00); Glucose, Blood 80.0 mg/dL (70-99); Potassium, Blood 4.0 mmol/L (3.5-5.5); Sodium, Blood 135.0 mmol/L (136-145)
--- NOTE | 2024-12-28 06:38 | NUR ---
RN NOTIFIED DR. VARGAS OF 2.8 PAUSE AND 3 SECOND PAUSE NOTICED ON TELE MONITOR. PATIENT IS ASYPMTOMATIC AND VITAL SIGNS ARE STABLE. NO NEW ORDERS.
--- NOTE | 2024-12-28 12:50 | NUR ---
PT DISCHARGED AT 1245. ALL PAPERWORK REVIEWED AND EDUCATIONAL MATERIAL SENT WITH PT.PT ESCORTED OUT TO N ENTRANCE WITH FAMILY TO TRANSPORT. AOX4 AND COOPERATIVE OF CARE. 1 PERSON ASSIST TO RESTROOM ABLE TO MAKE ALL NEEDS KNOWN. NO DISTRESS NOTED.
== END 2024-12-28 12:50 | disposition home or self-care (01) ==
LOC: ER 01:03 → MEDS 01:04
PROVIDERS: Internal Medicine; Student in an Organized Health Care Education/Training Program; ADMIT Internal Medicine
DX: R07.89 Other chest pain (principal); I49.9 Cardiac arrhythmia, unspecified; I10 Essential (primary) hypertension; I48.0 Paroxysmal atrial fibrillation; I70.0 Atherosclerosis of aorta; E78.5 Hyperlipidemia, unspecified; K21.9 Gastro-esophageal reflux disease without esophagitis; F17.210 Nicotine dependence, cigarettes, uncomplicated; Z86.73 Personal history of transient ischemic attack (TIA), and cerebral infarction without residual deficits; Z79.01 Long term (current) use of anticoagulants; Z79.02 Long term (current) use of antithrombotics/antiplatelets; Z79.899 Other long term (current) drug therapy; Z88.8 Allergy status to other drugs, medicaments and biological substances
CPT/HCPCS: 36415; 71046; 71275; 80048; 80053; 82947; 83735; 84100; 84484; 85025; 93005; 93010; 93306; 96374-59; 96375; 99285-25; A9270; G0378; J1885; Q9967

== ENCOUNTER 2024-12-30 03:45 | Emergency (ER) | payer OTHER ==
[~2024-12-30] VITALS: Ht 167.6 cm; Wt 45.4 kg
[~2024-12-30 03:45] MED LIST changes: +Calcium Carbon500 MG PO
[2024-12-30] MEDS ORDERED: Magnesium Sulf 2 GM/Water 50ML 50 ML IV ONE (04:05)
[2024-12-30 04:16] LABS: BASOPHILS ABSOLUTE AUTO 0.04 K/mm3 (0.00-0.23); BASOPHILS PERCENT AUTO 1 % (0-2); EOSINOPHILS ABSOLUTE AUTO 0.07 K/mm3 (0.00-0.68); EOSINOPHILS PERCENT AUTO 1 % (0-6); Hematocrit 34.5 % (33.0-51.0); Hemoglobin 11.5 g/dL (11.5-16.0); IMMATURE GRAN ABSOLUTE AUTO 0.02 K/mm3 (0.00-0.10); IMMATURE GRAN PERCENT AUTO 0 % (0-1); LYMPHOCYTES ABSOLUTE AUTO 1.78 K/mm3 (0.84-5.20); LYMPHOCYTES PERCENT AUTO 26 % (21-46); MONOCYTES ABSOLUTE AUTO 0.74 K/mm3 (0.16-1.47); MONOCYTES PERCENT AUTO 11 % (4-13); Mean Corpuscular HGB Conc 33.3 g/dL (31.5-36.5); Mean Corpuscular Volume 92 fL (80-100); NEUTROPHILS ABSOLUTE AUTO 4.34 K/mm3 (1.96-9.15); NEUTROPHILS PERCENT AUTO 62 % (41-73); NRBC ABSOLUTE 0.00 K/mm3 (0.00-0.02); NRBC Auto 0.0 /100 WBC (0.0-0.2); Platelet Count 222 K/mm3 (150-400); RDW Coefficient Variation 14.3 % (11.7-14.2); RDW Standard Deviation 48.2 fL (35.1-46.3)
[2024-12-30 04:39] LABS: Alanine Aminotransfer (ALT/SGP 14.0 U/L (12-78); Albumin, Blood 3.3 g/dL (3.4-5.0); Albumin/Globulin Ratio 1.1 (0.8-1.8); Anion Gap 11.0 mmol/L (3-11); Aspartate Aminotrans (AST/SGOT 34.0 U/L (12-37); Bilirubin, Total 0.5 mg/dL (0.1-1.0); Blood Urea Nitrogen 7.0 mg/dL (8-24); CO2, Blood 22.0 mmol/L (21-32); Calcium, Blood 9.8 mg/dL (8.5-10.1); Chloride, Blood 102.0 mmol/L (98-108); Creatinine, Blood 0.7 mg/dL (0.40-1.00); Globulin, Blood 3.1 g/dL (2.2-4.0); Glucose, Blood 76.0 mg/dL (70-99); Potassium, Blood 3.7 mmol/L (3.5-5.5); Sodium, Blood 131.0 mmol/L (136-145); Total Protein, Blood 6.4 g/dL (6.4-8.2)
[2024-12-30 07:30] VITALS: BP 98/50
== END 2024-12-30 08:28 | disposition home or self-care (01) ==
LOC: ER 03:45
PROVIDERS: Emergency Medicine
DX: R07.89 Other chest pain (principal); E78.5 Hyperlipidemia, unspecified; I10 Essential (primary) hypertension; J44.9 Chronic obstructive pulmonary disease, unspecified; F17.210 Nicotine dependence, cigarettes, uncomplicated; Z79.02 Long term (current) use of antithrombotics/antiplatelets; Z79.899 Other long term (current) drug therapy; Z91.048 Other nonmedicinal substance allergy status; Z88.8 Allergy status to other drugs, medicaments and biological substances
CPT/HCPCS: 71045; 80053; 83690; 84484; 85025; 93005; 93010; 96365; 99285-25; J3475

== ENCOUNTER 2025-01-28 03:19 | Emergency (ER) | payer OTHER ==
[~2025-01-28] VITALS: Ht 152.4 cm; Wt 49.9 kg
[2025-01-28 03:36] VITALS: BP 110/65
[2025-01-28 03:47] LABS: BASOPHILS ABSOLUTE AUTO 0.04 K/mm3 (0.00-0.23); BASOPHILS PERCENT AUTO 1 % (0-2); EOSINOPHILS ABSOLUTE AUTO 0.12 K/mm3 (0.00-0.68); EOSINOPHILS PERCENT AUTO 2 % (0-6); Hematocrit 27.2 % (33.0-51.0); Hemoglobin 9.0 g/dL (11.5-16.0); IMMATURE GRAN ABSOLUTE AUTO 0.03 K/mm3 (0.00-0.10); IMMATURE GRAN PERCENT AUTO 0 % (0-1); LYMPHOCYTES ABSOLUTE AUTO 1.96 K/mm3 (0.84-5.20); LYMPHOCYTES PERCENT AUTO 27 % (21-46); MONOCYTES ABSOLUTE AUTO 0.65 K/mm3 (0.16-1.47); MONOCYTES PERCENT AUTO 9 % (4-13); Mean Corpuscular HGB Conc 33.1 g/dL (31.5-36.5); Mean Corpuscular Volume 95 fL (80-100); NEUTROPHILS ABSOLUTE AUTO 4.47 K/mm3 (1.96-9.15); NEUTROPHILS PERCENT AUTO 61 % (41-73); NRBC ABSOLUTE 0.00 K/mm3 (0.00-0.02); NRBC Auto 0.0 /100 WBC (0.0-0.2); Platelet Count 352 K/mm3 (150-400); RDW Coefficient Variation 16.1 % (11.7-14.2); RDW Standard Deviation 57.3 fL (35.1-46.3)
[2025-01-28 04:03] LABS: Magnesium, Blood 2.3 mg/dL (1.6-2.4)
[2025-01-28 04:19] LABS: Alanine Aminotransfer (ALT/SGP 10 U/L (12-78); Albumin, Blood 2.8 g/dL (3.4-5.0); Albumin/Globulin Ratio 0.8 (0.8-1.8); Anion Gap 7 mmol/L (3-11); Aspartate Aminotrans (AST/SGOT 25 U/L (12-37); Bilirubin, Total <0.1 mg/dL (0.1-1.0); Blood Urea Nitrogen 21 mg/dL (8-24); CO2, Blood 20 mmol/L (21-32); Calcium, Blood 8.5 mg/dL (8.5-10.1); Chloride, Blood 116 mmol/L (98-108); Creatinine, Blood 0.70 mg/dL (0.40-1.00); Globulin, Blood 3.4 g/dL (2.2-4.0); Glucose, Blood 86 mg/dL (70-99); Potassium, Blood 3.7 mmol/L (3.5-5.5); Sodium, Blood 139 mmol/L (136-145); Total Protein, Blood 6.2 g/dL (6.4-8.2)
== END 2025-01-28 05:17 | disposition home or self-care (01) ==
LOC: ER 03:19
PROVIDERS: Student in an Organized Health Care Education/Training Program
DX: R07.2 Precordial pain (principal); I48.91 Unspecified atrial fibrillation; Z88.8 Allergy status to other drugs, medicaments and biological substances; I10 Essential (primary) hypertension; E78.5 Hyperlipidemia, unspecified; J44.9 Chronic obstructive pulmonary disease, unspecified; F17.210 Nicotine dependence, cigarettes, uncomplicated
CPT/HCPCS: 71045; 80053; 83735; 84484; 85025; 93005; 93010; 99285-25

== ENCOUNTER 2025-02-07 14:24 | Observation (INO) | payer OTHER ==
[~2025-02-07] VITALS: Ht 167.6 cm; Wt 47.9 kg
[2025-02-07 15:05] LABS: BASOPHILS ABSOLUTE AUTO 0.03 K/mm3 (0.00-0.23); BASOPHILS PERCENT AUTO 1 % (0-2); EOSINOPHILS ABSOLUTE AUTO 0.05 K/mm3 (0.00-0.68); EOSINOPHILS PERCENT AUTO 1 % (0-6); Hematocrit 24.6 % (33.0-51.0); Hemoglobin 7.9 g/dL (11.5-16.0); IMMATURE GRAN ABSOLUTE AUTO 0.01 K/mm3 (0.00-0.10); IMMATURE GRAN PERCENT AUTO 0 % (0-1); LYMPHOCYTES ABSOLUTE AUTO 1.42 K/mm3 (0.84-5.20); LYMPHOCYTES PERCENT AUTO 37 % (21-46); MONOCYTES ABSOLUTE AUTO 0.46 K/mm3 (0.16-1.47); MONOCYTES PERCENT AUTO 12 % (4-13); Mean Corpuscular HGB Conc 32.1 g/dL (31.5-36.5); Mean Corpuscular Volume 97 fL (80-100); NEUTROPHILS ABSOLUTE AUTO 1.87 K/mm3 (1.96-9.15); NEUTROPHILS PERCENT AUTO 49 % (41-73); NRBC ABSOLUTE 0.00 K/mm3 (0.00-0.02); NRBC Auto 0.0 /100 WBC (0.0-0.2); Platelet Count 218 K/mm3 (150-400); RDW Coefficient Variation 15.7 % (11.7-14.2); RDW Standard Deviation 55.8 fL (35.1-46.3)
[2025-02-07] MEDS ORDERED: OMEP20ER PO ×2 (15:13)
[2025-02-07 15:17] LABS: Alanine Aminotransfer (ALT/SGP 9.0 U/L (12-78); Albumin, Blood 2.3 g/dL (3.4-5.0); Albumin/Globulin Ratio 0.8 (0.8-1.8); Anion Gap 8.0 mmol/L (3-11); Aspartate Aminotrans (AST/SGOT 14.0 U/L (12-37); Bilirubin, Total 0.1 mg/dL (0.1-1.0); Blood Urea Nitrogen 12.0 mg/dL (8-24); CO2, Blood 20.0 mmol/L (21-32); Calcium, Blood 7.8 mg/dL (8.5-10.1); Chloride, Blood 117.0 mmol/L (98-108); Creatinine, Blood 0.77 mg/dL (0.40-1.00); Globulin, Blood 2.8 g/dL (2.2-4.0); Glucose, Blood 95.0 mg/dL (70-99); Potassium, Blood 4.0 mmol/L (3.5-5.5); Sodium, Blood 141.0 mmol/L (136-145); Total Protein, Blood 5.1 g/dL (6.4-8.2)
[2025-02-07] MEDS ORDERED: Polyethylene Glycol 3350 17 gm PO ONE (15:30)
[2025-02-07] MEDS ORDERED: Mag Sulfate 1 GM/D5% 100ML 100 ML IV ONE (15:40)
[2025-02-07] MEDS ORDERED: FLU VACC TS2025(65UP)/MF59C/PF 45 MCG/0.5 ML SYRINGE IM SCH (17:55)
[2025-02-07 18:27] VITALS: BP 104/59
[2025-02-07] MEDS ORDERED: ASPI325 PO ×2 (21:19)
--- NOTE | 2025-02-07 21:55 | NUR ---
THIS FORESTRY FACULTY MEMBER SPOKE OVER THE PHONE WITH NADREI RASHEED, ON-CALL HOSPITALIST REGARDING ED ORDER FOR LR @125NLS/HR. THIS ORDER IS ACTIVE ON EMAR. PER CONVERSTATION, CONTINUE LR @125MLS/HR. THIS FORESTRY FACULTY MEMBER PUT IN NEW ORDER AND D/C'D THE ED ORDER OF LR. THIS FORESTRY FACULTY MEMBER ALSO RECEIVED A NEW ORDER FOR TYLENOL PO 500MG Q6HRS PRN. [facility]. NO ADDITIONAL NEW ORDERS AT THIS TIME.
--- NOTE | 2025-02-07 22:01 | NUR ---
PT ARRIVED DURING SHIFT CHANGE. ERICK OLIVAS ON DAY SHIFT COMPLETED THE MED REC. NOC SHIFT BREAK NURSE WILMER COMPLETED THE ADMISSION ASSESSMENT AND FINISHED AT 2200.
[2025-02-08] VITALS (7 sets, daily range): BP systolic 115–134; BP diastolic 49–109
--- NOTE | 2025-02-08 03:33 | NUR ---
SHIFT SUMMARY NO ACUTE DISTRESS NOTED/REPORTED DURING THIS SHIFT. NO EVENTS ON TELE, SR @76. PT DENIES CP/PRESSURE. LR INFUSING ORDERED. NEW ORDER FOR TYLENOL PRN PO RECEIVED FROM THE ON-CALL HOSPITALIST FOR C/O H/A 11/05. PT IS A/O X4, ABLE TO MAKE HER NEEDS KNOWN AND COOPERATIVE WITH CARE. 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 PT AMBULATES WITH CANE, SBA TO THE RESTROOM. BED ALARM FOR SAFETY. BED AT THE LOWEST POSITION, CALL LIGHT WITHIN REACH. PT IS PLEASANT AND CALLS APPROPRIATELY.
[2025-02-08 06:05] LABS: BASOPHILS ABSOLUTE AUTO 0.07 K/mm3 (0.00-0.23); BASOPHILS PERCENT AUTO 1 % (0-2); EOSINOPHILS ABSOLUTE AUTO 0.10 K/mm3 (0.00-0.68); EOSINOPHILS PERCENT AUTO 2 % (0-6); Hematocrit 26.8 % (33.0-51.0); Hemoglobin 8.9 g/dL (11.5-16.0); IMMATURE GRAN ABSOLUTE AUTO 0.07 K/mm3 (0.00-0.10); IMMATURE GRAN PERCENT AUTO 1 % (0-1); LYMPHOCYTES ABSOLUTE AUTO 1.83 K/mm3 (0.84-5.20); LYMPHOCYTES PERCENT AUTO 31 % (21-46); MONOCYTES ABSOLUTE AUTO 0.65 K/mm3 (0.16-1.47); MONOCYTES PERCENT AUTO 11 % (4-13); Mean Corpuscular HGB Conc 33.2 g/dL (31.5-36.5); Mean Corpuscular Volume 95 fL (80-100); NEUTROPHILS ABSOLUTE AUTO 3.15 K/mm3 (1.96-9.15); NEUTROPHILS PERCENT AUTO 54 % (41-73); NRBC ABSOLUTE 0.00 K/mm3 (0.00-0.02); NRBC Auto 0.0 /100 WBC (0.0-0.2); Platelet Count 219 K/mm3 (150-400); RDW Coefficient Variation 15.9 % (11.7-14.2); RDW Standard Deviation 54.7 fL (35.1-46.3)
[2025-02-08 06:18] LABS: Alanine Aminotransfer (ALT/SGP 9.0 U/L (12-78); Albumin, Blood 2.6 g/dL (3.4-5.0); Albumin/Globulin Ratio 1.0 (0.8-1.8); Anion Gap 9.0 mmol/L (3-11); Aspartate Aminotrans (AST/SGOT 18.0 U/L (12-37); Bilirubin, Total 0.2 mg/dL (0.1-1.0); Blood Urea Nitrogen 10.0 mg/dL (8-24); CO2, Blood 20.0 mmol/L (21-32); Calcium, Blood 8.4 mg/dL (8.5-10.1); Chloride, Blood 116.0 mmol/L (98-108); Creatinine, Blood 0.64 mg/dL (0.40-1.00); Globulin, Blood 2.7 g/dL (2.2-4.0); Glucose, Blood 53.0 mg/dL (70-99); Magnesium, Blood 2.1 mg/dL (1.6-2.4); Potassium, Blood 3.7 mmol/L (3.5-5.5); Sodium, Blood 141.0 mmol/L (136-145); Total Protein, Blood 5.3 g/dL (6.4-8.2)
[2025-02-08] MEDS ORDERED: Enoxaparin 40 MG/0.4 ML SYR SC SCH (09:00)
--- NOTE | 2025-02-08 11:26 | NUR ---
THIS RN GAVE REPORT TO ERICK LUTZ. BOLIVAR, RN TO ASSUME CARE OF PT AT 11:25. PT MOVED TO ROOM 342. PT A&OX4, VSS, AMB W/ ASSIST, TOLERATING PO, VOIDING, AND DENIED PAIN. PLAN FOR STRESS TEST AND ULTRASOUND THIS SHIFT.
--- NOTE | 2025-02-08 18:13 | NUR ---
PATIENT A/OX4, UP WITH SBA AND CANE IN ROOM. VSS, ON RA. TLYNEOL GIVEN X1 TODAY FOR A HEADACHE WITH STATED RELIEF. 2ND PART OF STRESS TEST TOMORROW. NPO AT 0800 FOR 2ND PART OF STRESS TEST. SR ON TELE IN THE 60'S. CONTINENT OF BOWEL AND BLADDER. TOLERATING REGULAR DIET. PLEASANT AND COOPERATIVE WITH CARE. NO NEW CONCERNS THIS SHIFT.
[2025-02-09 00:33] VITALS: BP 134/83
[2025-02-09 04:10] VITALS: BP 108/64
--- NOTE | 2025-02-09 05:46 | NUR ---
SHIFT SUMMARY 84 YR F ADMITTED ON 02/07/25. FULL CODE. NO ACUTE CHANGES THIS SHIFT. THIS NURSE NOTED THAT IN A.M. LABS ON THE PT'S BLOOD SUGAR WAS 53. PT WAS ASKED WHAT SHE HAD EATEN DURING THE DAY AND PT STATED THAT SHE DID NOT EACH MUCH SO HER BLOOD SUGAR WAS TAKEN BEFORE BEDTIME AND IT WAS 67. PT WAS ASKED TO DRINK SOME ORANGE JUICE AND EAT SOME NILDA CRACKERS BEFORE GOING TO SLEEP FOR THE NIGHT. SHE WAS NOT HAPPY ABOUT DOING THIS AND IT WAS EXPLAINED TO HER THAT HER CBS WAS LOW AND WOULD LIKELY DECREASE MORE THROUGHOUT THE NIGHT. PT AGREED BUT STATED THAT THE OJ MADE HER SICK TO HER STOMACH. SHE WAS GIVEN AN ENSURE INSTEAD. OF NOW WE ARE WAITING ON MORNING LAB RESULTS FOR CURRENT BS. PT WOKE UP CONFUSED AT ONE POINT IN THE NIGHT AND PULLED HER IV OUT. A NEW ONE WAS PLACED AND WRAPPED WELL W/ COBAN. PLAN IS FOR SECOND PART OF STRESS TEST TODAY. PT CALLS APPROPRIATELY FOR ASSISTANCE. BED IS IN LOW POSITION AND CALL LIGHT IS IN REACH.
[2025-02-09 07:20] VITALS: BP 118/65
[2025-02-09 10:40] VITALS: BP 121/89
--- NOTE | 2025-02-09 10:50 | NUR ---
PHYSICIAN CONTACT- CHEST HEAVYNESS/DIZZINESS WHILE WORKING WITH PHYSICAL THERAPY, PT BECAME DIZZY AND HAD TO SIT DOWN. PT STARTED COMPLAINING OF CHEST HEAVYNESS. DR. CALDERÓN NOTIFIED. ORDER FOR EKG OBTAINED.
[2025-02-09 11:31] VITALS: BP 124/74
--- NOTE | 2025-02-09 12:55 | NUR ---
ROUNDED ON PT. SHE HAS A POLST ON FILE THAT SAYS DNR/ LIMITED. DISCUSSED WITH PATIENT AND FAMILY, AGREED TO FOLLOW WHAT THE POLST SAYS. DISCUSSED WITH PROVIDER AND CODE STATUS CHANGED
[2025-02-09] MEDS ORDERED: NICO21TP TOP ×2 (16:03)
[2025-02-09] MEDS ORDERED: PANT40 PO ×2 (16:04)
--- NOTE | 2025-02-09 16:24 | NUR ---
DISCHARGED PT DISCHARGED AFTER MED CHANGES & NEW MEDS WERE GONE OVER. PT INSTRUCTED TO FOLLOW UP IN A WEEK WITH HER PCP. HOME HEALTH TO CONTACT HER. PT ALSO EDUCATED ON THESE THINGS. BOTH DENIED FURTHER NEED FOR INSTRUCTION. PT IV REMOVED BY GENERATION ENGINEERING TECHNOLOGIST. WHEELED OUT BY AIDE & DRIVEN HOME BY SPOUSE.
== END 2025-02-09 16:24 | disposition home health service (06) ==
LOC: ER 14:24 → MEDS 14:25
PROVIDERS: ADMIT Internal Medicine
DX: R55 Syncope and collapse (principal); R07.89 Other chest pain; R53.81 Other malaise; I11.9 Hypertensive heart disease without heart failure; I48.0 Paroxysmal atrial fibrillation; J44.9 Chronic obstructive pulmonary disease, unspecified; D64.9 Anemia, unspecified; I69.954 Hemiplegia and hemiparesis following unspecified cerebrovascular disease affecting left non-dominant side; I65.23 Occlusion and stenosis of bilateral carotid arteries; M81.0 Age-related osteoporosis without current pathological fracture; F32.A Depression, unspecified; E78.5 Hyperlipidemia, unspecified; F17.210 Nicotine dependence, cigarettes, uncomplicated; Z66 Do not resuscitate; Z91.048 Other nonmedicinal substance allergy status; Z79.02 Long term (current) use of antithrombotics/antiplatelets; Z79.01 Long term (current) use of anticoagulants; Z79.899 Other long term (current) drug therapy; Z88.8 Allergy status to other drugs, medicaments and biological substances; Z90.710 Acquired absence of both cervix and uterus
CPT/HCPCS: 36415; 70450; 72125; 78452; 80053; 82947; 83605; 83735; 84484; 85025; 93005; 93010; 93017; 93880; 96361; 96365; 96375; 97116; 97162; 97165; 99285-25; A9270; A9500; G0378; J0706; J2785; J3475; J7120

== ENCOUNTER → 2025-02-09 | Outpatient (CLI) | payer OTHER ==
[~2025-02-09] MED LIST changes: +ASPI325 PO; +NICO21TP TOP; +PANT40 PO
[2025-02-12 14:18] LABS: Stool Occult Bld Immuno 1 Positive (NEGATIVE)
== END ==
LOC: LAB 11:41 → LAB SHORT 11:41
PROVIDERS: Physician Assistant
DX: D64.9 Anemia, unspecified (principal)
CPT/HCPCS: 82274

== ENCOUNTER → 2025-02-19 | Outpatient (CLI) | payer OTHER ==
[2025-02-19 15:51] LABS: Alanine Aminotransfer (ALT/SGP 11.0 U/L (12-78); Albumin, Blood 2.9 g/dL (3.4-5.0); Albumin/Globulin Ratio 0.8 (0.8-1.8); Anion Gap 8.0 mmol/L (3-11); Aspartate Aminotrans (AST/SGOT 27.0 U/L (12-37); Bilirubin, Total 0.3 mg/dL (0.1-1.0); Blood Urea Nitrogen 15.0 mg/dL (8-24); CO2, Blood 21.0 mmol/L (21-32); Calcium, Blood 8.5 mg/dL (8.5-10.1); Chloride, Blood 114.0 mmol/L (98-108); Creatinine, Blood 0.71 mg/dL (0.40-1.00); Ferritin, Serum 320.0 ng/mL (8-252); Globulin, Blood 3.5 g/dL (2.2-4.0); Glucose, Blood 103.0 mg/dL (70-99); Potassium, Blood 4.3 mmol/L (3.5-5.5); Sodium, Blood 139.0 mmol/L (136-145); Total Iron Binding Capacity 198.0 ug/dL (250-450); Total Protein, Blood 6.4 g/dL (6.4-8.2)
[2025-02-19 15:57] LABS: BASOPHILS ABSOLUTE AUTO 0.05 K/mm3 (0.00-0.23); BASOPHILS PERCENT AUTO 1 % (0-2); EOSINOPHILS ABSOLUTE AUTO 0.10 K/mm3 (0.00-0.68); EOSINOPHILS PERCENT AUTO 1 % (0-6); Hematocrit 28.2 % (33.0-51.0); Hemoglobin 8.9 g/dL (11.5-16.0); IMMATURE GRAN ABSOLUTE AUTO 0.04 K/mm3 (0.00-0.10); IMMATURE GRAN PERCENT AUTO 1 % (0-1); LYMPHOCYTES ABSOLUTE AUTO 1.48 K/mm3 (0.84-5.20); LYMPHOCYTES PERCENT AUTO 21 % (21-46); MONOCYTES ABSOLUTE AUTO 0.64 K/mm3 (0.16-1.47); MONOCYTES PERCENT AUTO 9 % (4-13); Mean Corpuscular HGB Conc 31.6 g/dL (31.5-36.5); Mean Corpuscular Volume 97 fL (80-100); NEUTROPHILS ABSOLUTE AUTO 4.86 K/mm3 (1.96-9.15); NEUTROPHILS PERCENT AUTO 68 % (41-73); NRBC ABSOLUTE 0.00 K/mm3 (0.00-0.02); NRBC Auto 0.0 /100 WBC (0.0-0.2); Platelet Count 315 K/mm3 (150-400); RDW Coefficient Variation 15.5 % (11.7-14.2); RDW Standard Deviation 54.9 fL (35.1-46.3)
== END ==
LOC: LAB 12:50 → LAB SHORT 12:50
PROVIDERS: Physician Assistant
DX: D64.9 Anemia, unspecified (principal)
CPT/HCPCS: 80053; 82728; 83540; 83550; 85025

== ENCOUNTER 2025-03-22 15:19 | Emergency (ER) | payer OTHER ==
[~2025-03-22] VITALS: Ht 167.6 cm; Wt 59.0 kg
[2025-03-22 15:49] VITALS: BP 180/80
[2025-03-22 16:13] LABS: BASOPHILS ABSOLUTE AUTO 0.09 K/mm3 (0.00-0.23); BASOPHILS PERCENT AUTO 1 % (0-2); EOSINOPHILS ABSOLUTE AUTO 0.27 K/mm3 (0.00-0.68); EOSINOPHILS PERCENT AUTO 4 % (0-6); Hematocrit 33.3 % (33.0-51.0); Hemoglobin 10.4 g/dL (11.5-16.0); IMMATURE GRAN ABSOLUTE AUTO 0.02 K/mm3 (0.00-0.10); IMMATURE GRAN PERCENT AUTO 0 % (0-1); LYMPHOCYTES ABSOLUTE AUTO 2.02 K/mm3 (0.84-5.20); LYMPHOCYTES PERCENT AUTO 28 % (21-46); MONOCYTES ABSOLUTE AUTO 0.62 K/mm3 (0.16-1.47); MONOCYTES PERCENT AUTO 9 % (4-13); Mean Corpuscular HGB Conc 31.2 g/dL (31.5-36.5); Mean Corpuscular Volume 97 fL (80-100); NEUTROPHILS ABSOLUTE AUTO 4.22 K/mm3 (1.96-9.15); NEUTROPHILS PERCENT AUTO 58 % (41-73); NRBC ABSOLUTE 0.00 K/mm3 (0.00-0.02); NRBC Auto 0.0 /100 WBC (0.0-0.2); Platelet Count 262 K/mm3 (150-400); RDW Coefficient Variation 13.4 % (11.7-14.2); RDW Standard Deviation 47.8 fL (35.1-46.3)
[2025-03-22 16:42] LABS: Alanine Aminotransfer (ALT/SGP 10.0 U/L (12-78); Albumin, Blood 3.6 g/dL (3.4-5.0); Albumin/Globulin Ratio 1.0 (0.8-1.8); Anion Gap 7.0 mmol/L (3-11); Aspartate Aminotrans (AST/SGOT 18.0 U/L (12-37); Bilirubin, Total 0.2 mg/dL (0.1-1.0); Blood Urea Nitrogen 14.0 mg/dL (8-24); CO2, Blood 23.0 mmol/L (21-32); Calcium, Blood 9.0 mg/dL (8.5-10.1); Chloride, Blood 109.0 mmol/L (98-108); Creatinine, Blood 0.84 mg/dL (0.40-1.00); Globulin, Blood 3.6 g/dL (2.2-4.0); Glucose, Blood 88.0 mg/dL (70-99); Potassium, Blood 3.7 mmol/L (3.5-5.5); Sodium, Blood 135.0 mmol/L (136-145); Total Protein, Blood 7.2 g/dL (6.4-8.2)
== END 2025-03-22 17:12 | disposition left against medical advice (07) ==
LOC: ER 15:19
PROVIDERS: Emergency Medicine
DX: R07.89 Other chest pain (principal); I10 Essential (primary) hypertension; E78.00 Pure hypercholesterolemia, unspecified; I48.91 Unspecified atrial fibrillation; K21.9 Gastro-esophageal reflux disease without esophagitis; I69.354 Hemiplegia and hemiparesis following cerebral infarction affecting left non-dominant side; F17.210 Nicotine dependence, cigarettes, uncomplicated; Z53.29 Procedure and treatment not carried out because of patient's decision for other reasons; Z91.048 Other nonmedicinal substance allergy status; Z88.8 Allergy status to other drugs, medicaments and biological substances; Z79.02 Long term (current) use of antithrombotics/antiplatelets; Z79.899 Other long term (current) drug therapy
CPT/HCPCS: 71046; 80053; 84484; 85025; 93005; 93010; 99285-25